=== PATIENT | female | born 1955 | race Caucasian/White ===

== ENCOUNTER → 2016-12-07 | Outpatient (CLI) | payer OTHER, MEDICAID | LOC: FIMAGING 13:20 | PROVIDERS: ATTEND Nurse Practitioner Family | DX: J20.5 Acute bronchitis due to respiratory syncytial virus (principal) ==

== ENCOUNTER → 2017-06-27 | Outpatient (CLI) | payer OTHER, MEDICAID | LOC: CIMAGING 12:39 | PROVIDERS: ATTEND Family Medicine | DX: Z12.31 Encounter for screening mammogram for malignant neoplasm of breast (principal) | CPT/HCPCS: G0202 ==